=== PATIENT | male | born 1955 | race Caucasian/White ===

== ENCOUNTER 2017-11-08 06:43 | Day surgery (SDC) | payer BC ==
[~2017-11-08] VITALS: Ht 175.3 cm; Wt 93.0 kg
[~2017-11-08 06:43] MED LIST: ASPIRIN 8181 MG PO; ASPIRIN81 MG PO; CHILD ASA81 MG PO; CINNAMON500 MG PO; GLUCO/CHOND2 PO; GLUCOSAMINE1500 M1 PO; LISINOPRIL2.5 MG PO; LOVASTATIN10 M1 PO; METFORMIN1000 MG PO; METFORMIN500 MG PO; MEVACOR10 MG PO; MICRONASE5 MG PO; MULT1 PO; MULTI VIT PO; VITAMIN C500 M4 PO; ZESTRIL/PRINIV2.5 MG PO
[2017-11-08 08:47] VITALS: BP 112/70
== END 2017-11-08 09:15 | disposition home or self-care (01) | DRG 951 ==
LOC: ENDO 06:43
PROVIDERS: ATTEND Surgery
PROC: 0DJD8ZZ Inspection of Lower Intestinal Tract, Via Natural or Artificial Opening Endoscopic (ICD-10-PCS; principal; 2017-11-08)
DX: Z12.11 Encounter for screening for malignant neoplasm of colon (principal); K64.8 Other hemorrhoids; Z90.5 Acquired absence of kidney